=== PATIENT | female | born 1945 | race Caucasian/White ===

== ENCOUNTER 2016-11-21 10:02 | Emergency (ER) | payer OTHER, MEDICARE ==
[~2016-11-21] VITALS: Ht 167.6 cm; Wt 54.9 kg
--- NOTE | ~2016-11-21 | EKG ---
[place] [address] [facility] [place] [address] ELECTROCARDIOGRAM REPORT Name: NANCY SANTIAGO [id number] Admission: 11/21/16 Attend Phys: Discharge: 11/21/16 Date of : 47 Report #: [id number] THIS REPORT FOR: //name// [facility] ED Test Date: 2016-11-21 Test Time: 10:21:58 Pat Name: NANCY SANTIAGO Department: Room: Gender: F Research Manager: irma : 1945 Requested By: Bridget Daly Order Number: [id number] MD: Joseph Vieyra Measurements Intervals [place] Rate: 71 P: 67 AL: 171 QRS: 15 QRSD: 108 T: 35 QT: 427 QTc: 465 Interpretive Statements Sinus rhythm RSR' in V1 or V2, probably normal variant No previous ECG available for comparison Electronically Signed On 11-22-2016 7:40:40 CDT by Joseph Vieyra [email or web address] <ELECTRONICALLY SIGNED> By: Joseph Vieyra MD, [facility] 11/22/16 0740 1021 1021 Joseph Vieyra MD, FACC /EPI
[~2016-11-21 10:02] MED LIST: ENALAPRIL MALEA20 MG PO; KEFLEX250 MG PO; MEDROLDOSEPACK PO; PERCOCET 5-3251 EACH PO; TOPROL XL50 MG PO
[2016-11-21] MEDS ORDERED: PANTOPRAZOLE SO40 M1 PO (10:19)
[2016-11-21] MEDS ORDERED: CIPRO500 MG PO (10:19)
[2016-11-21] MEDS ORDERED: CRESTOR10 MG PO (10:20)
[2016-11-21] MEDS ORDERED: ASPIR 8181 MG PO (10:20)
[2016-11-21] MEDS ORDERED: TUMS PO (10:20)
[2016-11-21] MEDS ORDERED: CO Q-10100 MG PO (10:20)
[2016-11-21] MEDS ORDERED: MAGOX 400400 MG PO (10:20)
[2016-11-21] MEDS ORDERED: VITAMIN D1000 UNI1 PO (10:21)
[2016-11-21 10:25] LABS: BASOPHILS 0.5 % (0.0-2.0); EOSINOPHILS 2.3 % (0.0-3.0); HEMATOCRIT 42.2 % (37.0-47.0); HEMOGLOBIN 14.3 gm/dL (12.0-15.0); LYMPHOCYTES 21.7 % (24.0-44.0); MANUAL DIFF NO; MCH 30.6 pg (26.0-34.0); MCHC 33.8 g/dL (28.0-37.0); MCV 90.5 fL (80.0-100.0); PLATELET COUNT 353 thou/uL (150-400); POLYS 69.5 % (36.0-66.0); RBC 4.67 mil/uL (4.20-5.00); RDW 13.5 % (10.5-14.5); WBC 11.5 thou/uL (4.0-11.0)
[2016-11-21 10:34] LABS: ANION GAP 7 mmol/L (7-16); BUN 14 mg/dL (7-18); CALCIUM 9.3 mg/dL (8.5-10.1); CHLORIDE 93 mmol/L (98-107); CO2 28 mmol/L (21-32); CREATININE 0.9 mg/dL (0.6-1.0); GLUCOSE 162 mg/dL (74-106); POTASSIUM 3.4 mmol/L (3.5-5.1); SODIUM 128 mmol/L (136-145)
[2016-11-21 10:43] LABS: TROPONIN-I < 0.04 ng/mL (<0.04-0.07)
[2016-11-21] MEDS ORDERED: ANTIVERT25 MG PO (11:29)
[2016-11-21 11:38] VITALS: BP 191/94
[2016-11-21 11:42] LABS: URINE BILIRUBIN NEGATIVE (Negative); URINE BLOOD NEGATIVE (Negative); URINE COLOR YELLOW; URINE GLUCOSE-RANDOM* NEGATIVE (Negative); URINE KETONES NEGATIVE (Negative); URINE NITRITE NEGATIVE (Negative); URINE PROTEIN (DIPSTICK) NEGATIVE (Negative); URINE SPECIFIC GRAVITY 1.015 (1.003-1.035); URINE UROBILINOGEN 0.2 E.U./dl (0.2-1.0)
== END 2016-11-21 11:47 | disposition home or self-care (01) ==
LOC: ER 10:02
PROVIDERS: Emergency Medicine
DX: R42 Dizziness and giddiness (principal); I10 Essential (primary) hypertension; Z88.2 Allergy status to sulfonamides

== ENCOUNTER 2016-12-22 17:29 | Emergency (ER) | payer OTHER, MEDICARE ==
[~2016-12-22] VITALS: Ht 167.6 cm; Wt 54.4 kg
--- NOTE | ~2016-12-22 | EKG ---
[place] [address] [facility] [place] [address] ELECTROCARDIOGRAM REPORT Name: NANCY SANTIAGO [facility] [id number] Admission: 12/22/16 Attend Phys: Discharge: 12/22/16 Date of : 47 Report #: [id number] THIS REPORT FOR: //name// [facility] ED Test Date: 2016-12-22 Test Time: 17:34:59 Pat Name: NANCY SANTIAGO Department: Room: Gender: F Shield Installer: Alexandra POOL : 1945 Requested By: Marlene Aguilar Order Number: [id number] MD: Joseph Vieyra Measurements Intervals [place] Rate: 82 P: -25 MN: 164 QRS: 9 QRSD: 92 T: 59 QT: 382 QTc: 446 Interpretive Statements Sinus rhythm Nonspecific ST segment abnormality Compared to ECG 11/21/2016 10:21:58 No significant changes Electronically Signed On 12-23-2016 11:04:44 CDT by Joseph Vieyra [email or web address] <ELECTRONICALLY SIGNED> By: Joseph Vieyra MD, [facility] 12/23/16 1104 1734 173 Joseph Vieyra MD, FACC /EPI
[~2016-12-22 17:29] MED LIST changes: +ANTIVERT25 MG PO; +ASPIR 8181 MG PO; +CIPRO500 MG PO; +CO Q-10100 MG PO; +CRESTOR10 MG PO; +MAGOX 400400 MG PO; +PANTOPRAZOLE SO40 M1 PO; +TUMS PO; +VITAMIN D1000 UNI1 PO
[2016-12-22] MEDS ORDERED: PLAVIX 75 MG TA75 M1 PO (17:42)
[2016-12-22 18:21] LABS: URINE BILIRUBIN NEGATIVE (Negative); URINE BLOOD NEGATIVE (Negative); URINE COLOR YELLOW; URINE GLUCOSE-RANDOM* NEGATIVE (Negative); URINE KETONES NEGATIVE (Negative); URINE NITRITE NEGATIVE (Negative); URINE PROTEIN (DIPSTICK) NEGATIVE (Negative); URINE UROBILINOGEN 0.2 E.U./dl (0.2-1.0)
[2016-12-22 18:31] LABS: ABSOLUTE NEUTROPHILS 5.9 thou/uL (1.4-8.2); BASOPHILS 0.9 % (0.0-2.0); EOSINOPHILS 5.1 % (0.0-3.0); HEMATOCRIT 38.6 % (37.0-47.0); HEMOGLOBIN 13.1 gm/dL (12.0-15.0); LYMPHOCYTES 24.5 % (24.0-44.0); MCH 30.4 pg (26.0-34.0); MCHC 33.9 g/dL (28.0-37.0); MCV 89.5 fL (80.0-100.0); MONOCYTES 8.2 % (1.0-8.0); PLATELET COUNT 289 thou/uL (150-400); POLYS 61.3 % (36.0-66.0); RBC 4.32 mil/uL (4.20-5.00); RDW 12.9 % (10.5-14.5); WBC 9.6 thou/uL (4.0-11.0)
[2016-12-22 18:38] LABS: ANION GAP 9 mmol/L (7-16); BUN 14 mg/dL (7-18); CALCIUM 9.3 mg/dL (8.5-10.1); CHLORIDE 97 mmol/L (98-107); CO2 27 mmol/L (21-32); CREATININE 0.9 mg/dL (0.6-1.0); GLUCOSE 101 mg/dL (74-106); SODIUM 133 mmol/L (136-145)
[2016-12-22 18:40] LABS: MANUAL DIFF NO
[2016-12-22 18:49] LABS: ALBUMIN 4.4 g/dL (3.4-5.0); ALKALINE PHOSPHATASE 68 U/L (46-116); NT-PRO BRAIN NAT PEPTIDE 1032 pg/mL (<300); SGOT 27 U/L (15-37); SGPT 21 U/L (30-65); TOTAL BILIRUBIN 0.4 mg/dL (<0.1-1.0); TOTAL PROTEIN 7.5 g/dL (6.4-8.2); TROPONIN-I < 0.04 ng/mL (<0.04-0.07)
[2016-12-22] MEDS ORDERED: VASOTEC10 MG PO (19:23)
[2016-12-22 19:45] VITALS: BP 190/95
== END 2016-12-22 19:46 | disposition home or self-care (01) ==
LOC: ER 17:29
PROVIDERS: Nurse Practitioner Family
DX: I16.0 Hypertensive urgency (principal); M19.90 Unspecified osteoarthritis, unspecified site; F10.99 Alcohol use, unspecified with unspecified alcohol-induced disorder; Z88.2 Allergy status to sulfonamides; Z87.891 Personal history of nicotine dependence

== ENCOUNTER → 2019-11-19 | Outpatient (CLI) | payer OTHER, MEDICARE ==
[~2019-11-19] MED LIST changes: +PLAVIX 75 MG TA75 M1 PO; +VASOTEC10 MG PO
== END ==
LOC: SJCVC 10:01
DX: I10 Essential (primary) hypertension (principal); I73.9 Peripheral vascular disease, unspecified; I65.23 Occlusion and stenosis of bilateral carotid arteries; E78.5 Hyperlipidemia, unspecified; Z90.49 Acquired absence of other specified parts of digestive tract; Z79.899 Other long term (current) drug therapy; Z87.891 Personal history of nicotine dependence

== ENCOUNTER → 2020-05-23 | Outpatient (CLI) | payer OTHER, MEDICARE | LOC: SJCVCIMAG 10:20 | PROVIDERS: ATTEND Internal Medicine | DX: I65.23 Occlusion and stenosis of bilateral carotid arteries (principal); R94.31 Abnormal electrocardiogram [ECG] [EKG]; I10 Essential (primary) hypertension; E78.5 Hyperlipidemia, unspecified; I73.9 Peripheral vascular disease, unspecified; Z79.899 Other long term (current) drug therapy; Z87.891 Personal history of nicotine dependence ==

== ENCOUNTER 2020-10-25 17:08 | Emergency (ER) | payer OTHER, MEDICARE ==
[~2020-10-25] VITALS: Ht 167.6 cm; Wt 59.0 kg
[2020-10-25 17:26] VITALS: BP 211/92
== END 2020-10-25 19:19 | disposition home or self-care (01) ==
LOC: ER 17:08
DX: S61.411A Laceration without foreign body of right hand, initial encounter (principal); I10 Essential (primary) hypertension; Z87.891 Personal history of nicotine dependence; Z88.2 Allergy status to sulfonamides; Z79.899 Other long term (current) drug therapy; Z79.82 Long term (current) use of aspirin; V09.9XXA Pedestrian injured in unspecified transport accident, initial encounter; Y93.89 Activity, other specified; Y92.89 Other specified places as the place of occurrence of the external cause; Y99.9 Unspecified external cause status

== ENCOUNTER → 2020-11-22 | Outpatient (CLI) | payer OTHER, MEDICARE | LOC: SJCVC 10:51 | PROVIDERS: ATTEND Internal Medicine | DX: I65.23 Occlusion and stenosis of bilateral carotid arteries (principal); I10 Essential (primary) hypertension; E78.5 Hyperlipidemia, unspecified; I73.9 Peripheral vascular disease, unspecified; Z79.82 Long term (current) use of aspirin; Z79.899 Other long term (current) drug therapy; Z87.891 Personal history of nicotine dependence; Z72.89 Other problems related to lifestyle; Z88.2 Allergy status to sulfonamides ==

== ENCOUNTER → 2021-05-25 | Outpatient (CLI) | payer OTHER, MEDICARE | LOC: SJCVCIMAG 10:16 | PROVIDERS: ATTEND Internal Medicine | DX: I65.23 Occlusion and stenosis of bilateral carotid arteries (principal); I10 Essential (primary) hypertension; E78.5 Hyperlipidemia, unspecified; I73.9 Peripheral vascular disease, unspecified; Z79.82 Long term (current) use of aspirin; Z79.899 Other long term (current) drug therapy; Z87.891 Personal history of nicotine dependence; Z72.89 Other problems related to lifestyle; Z88.2 Allergy status to sulfonamides ==